=== PATIENT | female | born 1985 ===

== ENCOUNTER 2017-03-14 03:48 | Inpatient (IN) | payer OTHER ==
[2017-03-14] MEDS ORDERED: DEXTROSE 5%-LACTATED RINGERS 500 ML IV ONE (04:45)
[2017-03-14] MEDS ORDERED: AMPICILLIN SODIUM 2 GM VIAL ONE (04:49)
[2017-03-14 05:00] LABS: BASO % 0.8 % (0-2.0); EOS % 2.2 % (0-4.5); HEMATOCRIT 25.5 % (32.4-45.2); HEMOGLOBIN 7.9 GM/dL (10.7-15.3); LYMPH % 23.6 % (8-40); MCH 20.8 pg (25.7-33.7); MCHC 30.9 g/dl (32.0-36.0); MEAN CELL VOLUME 67.4 fl (80-96); MEAN PLT VOLUME 8.5 fl (7.5-11.1); MONO % 11.5 % (3.8-10.2); NEUT % 61.9 % (42.8-82.8); PLATELET COUNT 180 K/MM3 (134-434); RBC 3.78 M/mm3 (3.60-5.2); RDW 19.2 % (11.6-15.6); WHITE BLOOD COUNT 6.8 K/mm3 (4.0-10.0)
[2017-03-14] MEDS ORDERED: AMPICILLIN - 2 GM in SODIUM CHLORIDE 100 ML IVPB ONE (05:00)
[2017-03-14] MEDS ORDERED: BUTORPHANOL TARTRATE 1 MG/ML VIAL ONE ×4 (05:07→12:20)
[2017-03-14] MEDS ORDERED: PROMETHAZINE HCL 25 MG/1 ML VIAL ONE ×3 (05:08→12:20)
[2017-03-14 05:10] VITALS: BMI 25.4
[2017-03-14] MEDS ORDERED: DEXTROSE 5%-LACTATED RINGERS 1,000 ML IV SCH (05:15)
[2017-03-14] MEDS ORDERED: PROMETHAZINE HCL 25 MG/1 ML VIAL IVPUSH ONE ×3 (05:20→12:30)
[2017-03-14] MEDS ORDERED: BUTORPHANOL TARTRATE 1 MG/ML VIAL IVPUSH ONE ×3 (05:20→12:30)
[2017-03-14 05:45] LABS: URINE APPEARANCE CLOUDY; URINE BILIRUBIN NEGATIVE (NEGATIVE); URINE BLOOD 2+ (NEGATIVE); URINE COLOR YELLOW; URINE GLUCOSE (UA) 1+ (NEGATIVE); URINE KETONE NEGATIVE (NEGATIVE); URINE LEUK ESTERASE NEGATIVE (NEGATIVE); URINE NITRITE NEGATIVE (NEGATIVE); URINE UROBILINOGEN NEGATIVE mg/dL (0.2-1.0)
[2017-03-14 05:53] LABS: URINE PROTEIN 2+ (NEGATIVE)
[2017-03-14 05:54] LABS: EPI CELLS MODERATE /HPF (FEW); URINE BACTERIA RARE /hpf (NONE SEEN); URINE HYALINE CAST 3 /lpf; URINE MUCUS RARE; YEAST RARE
[2017-03-14 05:55] LABS: COCAINE, UR NEGATIVE ng/ml (CUTOFF=300); METHADONE, UR NEGATIVE ng/ml (CUTOFF=300); OPIATES, URI NEGATIVE ng/ml (CUTOFF=300); PHENCYCLIDINE,URINE NEGATIVE ng/ml (CUTOFF=25); URINE AMPHETAMINES NEGATIVE ng/ml (CUTOFF=500); URINE BARBITURATES NEGATIVE ng/ml (CUTOFF=200); URINE BENZODIAZEPINES NEGATIVE ng/ml (CUTOFF=200)
[2017-03-14 06:02] LABS: INR 0.93 (0.82-1.09); PROTHROMBIN TIME (PATIENT) 10.5 SEC (9.98-11.88)
[2017-03-14 06:05] LABS: ACTIVATED PTT 25.8 SECONDS (26.9-34.4)
[2017-03-14 06:14] LABS: ALBUMIN 2.2 g/dl (3.4-5.0); ALK PHOS 127 U/L (45-117); ANION GAP 13 (8-16); BILIRUBIN,TOTAL 0.2 mg/dL (0.2-1.0); BLOOD UREA NITROGEN 8 mg/dL (7-18); CALCIUM 8.5 mg/dL (8.5-10.1); CHLORIDE 107 mmol/L (98-107); CO2 22 mmol/L (21-32); CREATININE 0.5 mg/dL (0.55-1.02); GLUCOSE,RANDOM 90 mg/dL (74-106); POTASSIUM 3.8 mmol/L (3.5-5.1); SGOT/AST 14 U/L (15-37); SGPT/ALT 13 U/L (12-78); SODIUM 142 mmol/L (136-145); TOT PROT 6.4 g/dl (6.4-8.2)
[2017-03-14] MEDS ORDERED: OXYTOCIN 30 UNITS in 0.9% NS 30 UNIT/500 ML INFUS.BAG IVPB ONE (06:22)
--- NOTE | 2017-03-14 06:36 | HP ---
Past Medical History - Primary Care Physician PCP:: Arielle No - Admission Chief Complaint: 32 yrs , 39.2/7 weeks with SROM since 3.30 AM & onset LP since 3.30 AM . pt is drop in, PNC at [facility] , records requested History of Present Illness: pt does not know her wt gain as per pt she had ultrasound done q 2 weeks in last month. History Source: Significant Other Limitations to Obtaining History: Language Barrier (armenian speaking from [facility] - Past Medical History WELLNESS NURSE: No: Migraine, Seizure Cardiovascular: No: HTN, Murmur Pulmonary: No: Asthma Gastrointestinal: Yes: Hemorrhoids Hepatobiliary: Yes: Cholelithiasis, Cholecystitis ...: 5 ...Para: 3 ...Term: 3 (3 at [facility] 2008, 2009, 2011) ...: 0 ...Spon : 1 (20 weeks ) ...Induced : 0 ...Multiple Gestation: 0 ... Weeks Gestation by Dates: 39.2 ...EDC by Dates: 03/19/17 Heme/Onc: Yes: Anemia Infectious Disease: Yes: Other (not known) Psych: Yes: Other (not known) Rheumatology: Yes: Other (not known) ENT: Yes: Other (not known) Endocrine: Yes: Other (not known) - Past Surgical History Past Surgical History: Yes: Cholecystectomy (? gall stones removed or gall bladder removed pt is not clear about it , in 2010) Hx Myomectomy: No Hx Transabdominal Cerclage: No - Smoking History Smoking history: Never smoked - Alcohol/Substance Use Hx Alcohol Use: No History of Substance Use: reports: None Home Medications - Allergies Allergies/Adverse Reactions: Allergies Allergy/AdvReac Type Severity Reaction Status Date / Time No Known Allergies Allergy Verified 11/24/15 16:56 - Home Medications Home Medications: Ambulatory Orders Acetaminophen [Tylenol] 650 mg PO Q4H PRN #20 tablet 11/25/15 Mag Hydrox/Al Hydrox/Simeth [Mylanta Suspension -] 30 ml PO Q6H PRN #1 bottle Ranitidine HCl [Zantac] 150 mg PO BID PRN #20 tablet 11/25/15 Physical Exam - Maternity Vital Signs: Vital Signs Temperature 97.9 F 03/14/17 06:00 Pulse Rate 94 H 03/14/17 06:00 Respiratory Rate 20 03/14/17 06:00 Blood Pressure 113/68 03/14/17 06:00 O2 Sat by Pulse Oximetry (%) Constitutional: Yes: Obese, Pallor, Other (pt is sedated after receiving stadol 2 mg + phenrgan 25 mg at 5.20 AM) Eyes: Yes: WNL, PERRL HENT: Yes: WNL Neck: Yes: WNL Cardiovascular: Yes: WNL Lungs: Clear to auscultation Breast(s): Yes: WNL. No: Mass - Abdominal Exam/OB Fundal Height: 40 Number of Fetuses: Single Presentation: Vertex Contractions: Yes Regularity: Irregular Intensity: Moderate (5-6-7 min) Monitor Mode: External Heart Rate (range): 130-140 Heart Rate Location: [facility] Category: I Accelerations: Uniform Decelerations: None - Vaginal Exam/OB Vaginal Bleediing: No Speculum Exam: No Dilatation (cm): 3 Effacement (%): 50 Amniotic Membrane Status: Ruptured Nitrazine Test: Positive Amniotic Fluid: Yes: Clear Presentation: Vertex/Position Station: -3 - Physical Exam Musculoskeletal: Yes: WNL Extremities: Yes: WNL. No: Calf Tenderness Edema: LLE: 1+, RLE: 1+ Integumentary: Yes: WNL Deep Tendon Reflex Grade: Normal +2 ...Motor Strength: WNL Psychiatric: Yes: WNL, Alert, Oriented - Labs Lab Results: CBC, BMP 03/14/17 04:44 03/14/17 04:44 Laboratory Tests 03/14/17 03/14/17 03/14/17 04:44 04:44 04:44 PT with INR 10.50 INR 0.93 PTT (Actin FS) 25.8 L AST 14 L ALT 13 Urine Protein Urine Glucose (UA) Urine Ketones Urine Blood Urine WBC (Auto) Urine RBC (Auto) Ur Epithelial Cells Urine Bacteria Hyaline Casts Opiates Screen Methadone Screen Barbiturate Screen Phencyclidine Screen Ur Amphetamines Screen MDMA (Ecstasy) Screen Benzodiazepines Screen Cocaine Screen U Marijuana (THC) Screen HIV 1&2 Antibody Screen Negative HIV P24 Antigen Negative 03/14/17 03/14/17 05:15 05:15 PT with INR INR PTT (Actin FS) AST ALT Urine Protein 2+ H Urine Glucose (UA) 1+ H Urine Ketones Negative Urine Blood 2+ H Urine WBC (Auto) 15 Urine RBC (Auto) 49 Ur Epithelial Cells Moderate Urine Bacteria Rare Hyaline Casts 3 Opiates Screen Negative Methadone Screen Negative Barbiturate Screen Negative Phencyclidine Screen Negative Ur Amphetamines Screen Negative MDMA (Ecstasy) Screen Negative Benzodiazepines Screen Negative Cocaine Screen Negative U Marijuana (THC) Screen Negative HIV 1&2 Antibody Screen HIV P24 Antigen Laboratory Tests 03/14/17 03/14/17 04:44 04:44 Blood Type A POSITIVE Antibody Screen Negative Problem List - Problems (1) with 39 completed weeks gestation Code(s): Z3A.39 - 39 WEEKS GESTATION OF (2) SROM (spontaneous rupture of membranes) Code(s): BLT0501 - (3) Anemia affecting fifth Code(s): O99.019 - ANEMIA COMPLICATING , UNSPECIFIED TRIMESTER; O09.40 - SUPERVISION OF W GRAND MULTIPARITY, UNSP TRIMESTER (4) with care elsewhere, antepartum Code(s): Z34.90 - ENCNTR FOR SUPRVSN OF NORMAL , UNSP, UNSP TRIMESTER Assessment/Plan 32 yrs , 39.2/7 weeks, iup with SROM & onset LP, care ? in [facility] , chart not available . GBS unknown, rx IV Ampicillin prophylaxis is started . Severe Anemia pt was having UC 2-4 min at the time of admission at 4.00AM , she received stadol 2 mg + phenrgan 25 mg iv at 5.20 AM post sedation UC are irrregular .RX IV Pitocin Augmentation is begun at 6.45 AM Trial of vaginal delivery
[2017-03-14] MEDS ORDERED: OXYTOCIN 15 UNITS/ LR 250 ML 250 ML IVPB SCH (06:45)
[2017-03-14] MEDS ORDERED: OXYTOCIN 30 UNITS in 0.9% NS 30 UNIT/500 ML INFUS.BAG IVPB SCH (07:00)
[2017-03-14] MEDS: AMPICILLIN - 1 GM in SODIUM CHLORIDE 100 ML IVPB SCH ×2 (09:31→13:00)
--- NOTE | 2017-03-14 10:10 | PN ---
Progress Note, Labor Vaginal Exam #1 Labor Exam Date: 03/14/17 Labor Exam Time: 09:55 Heart Rate (range): 140 Dilatation: 4-5 Effacement (%): 80 Amniotic Membrane Status: Ruptured Presentation: Vertex/Position Station: -2 (-2/-1) Remarks: fhr cat-1, sometimes cat-2 , variable decel . uc q 2-3 min . she requests for pain meds rx Iv stadol 1 mg + phenrgan 25 mg iv stat Selected Entries 03/14/17 03/14/17 03/14/17 07:56 09:00 10:05 Temperature 98.1 F Pulse Rate 90 83 Blood Pressure 121/78 125/71 Weight 171 lb Vaginal Exam #2 Labor Exam Date: 03/14/17 Labor Exam Time: 11:00 Heart Rate (range): 135 Dilatation: 5-6 Effacement (%): 90 Amniotic Membrane Status: Ruptured Presentation: Vertex/Position Station: -1 Remarks: fhr cat-2 uc 2-3 min Vaginal Exam #3 Labor Exam Date: 03/14/17 Labor Exam Time: 12:15 Heart Rate (range): 140 Dilatation: 7 Effacement (%): 100 Amniotic Membrane Status: Ruptured Station: -1 Remarks: fhr cat-2 uc-2-3 min pt requests for pain meds rx iv stadol 1mg + phenergan 25 mg iv stat Selected Entries 03/14/17 03/14/17 10:00 11:00 Temperature 98.2 F Pulse Rate 90 89 Blood Pressure 129/80 112/63 Blood Pressure 96 79 Mean Vaginal Exam #4 Labor Exam Date: 03/14/17 Labor Exam Time: 14:05 Heart Rate (range): 140 Dilatation: 10 Effacement (%): 100 Amniotic Membrane Status: Ruptured Presentation: Vertex/Position Station: 0 (0/+1) Remarks: fhr cat-2 uc 2- min expulsive efforts not adequate. wait for passive descent before encouraging her to push Selected Entries 03/14/17 14:00 Temperature 98.6 F Pulse Rate 77 Blood Pressure 122/72 pt was encouraged to push at 2.50 pm
[2017-03-14] MEDS ORDERED: OXYTOCIN 20 UNITS in 0.9% NS 20 UNIT/1,000 ML INFUS.BAG IV ONE ×2 (10:34→17:40)
[2017-03-14] MEDS: METHYLERGONOVINE MALEATE 0.2 MG/1 ML AMP IM PRN ×2 (15:35→16:40)
[2017-03-14] MEDS ORDERED: oxyCODONE HCL 5 MG TABLET PO PRN (15:53)
[2017-03-14] MEDS ORDERED: BISACODYL 10 MG SUPP.RECT RC PRN (15:53)
[2017-03-14] MEDS ORDERED: WITCH HAZEL 50% (TUCKS) 40 PAD/JAR PAD TP PRN (15:53)
[2017-03-14] MEDS ORDERED: BENZOCAINE 28 GM HEMORRHOIDAL OINTMENT TP PRN (15:53)
[2017-03-14] MEDS ORDERED: BENZOCAINE 20% 57 GM BOTTLE TP PRN (15:53)
[2017-03-14] MEDS ORDERED: OXYTOCIN 20 UNITS in 0.9% NS 20 UNIT/1,000 ML INFUS.BAG IV SCH (16:00)
--- NOTE | 2017-03-14 16:05 | PN ---
Delivery - Delivery Vaginal Delivery: No Problems, Spontaneous (cord around neckx1 clamped & cut before delivery of shoulder . prophylactically after delivery of fetus 20 units pitocin started & IM Methergine was given at 3.35 Pm . 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 PNC at [facility] GBS unknown . 3 doses Iv Ampicillin were given. Pitocin Augmentation wa started IV Stadol 2 mg + Phenrgan 25 mg Iv followed by 2 more doses of stadol 1 mg + Phenrgan 25 mg were given Severe anemia hgb/ hct 7.9/25.4 . intrapartum course uneventful .
[2017-03-14 16:39] LABS: ARTERIAL BLOOD GAS BASE EXCESS -5.8 meq/l (-2-2); ARTERIAL BLOOD GAS PCO2 54.6 mmHg (35-45)
[2017-03-14 16:40] LABS: ALLENS TEST POSITIVE
[2017-03-14 16:45] LABS: ARTERIAL BLD GAS O2 SATURATION 41.3 % (90-98.9); ARTERIAL BLOOD GAS PO2 22.2 mmHg (80-100); ARTERIAL BLOOD GAS pH 7.23 (7.35-7.45)
[2017-03-14 16:47] LABS: VENOUS PC02 47.4 mmHg (38-52); VENOUS PH 7.28 (7.32-7.42); VENOUS PO2 26.3 mmHg (28-48)
[2017-03-14] MEDS ORDERED: ACETAMINOPHEN 325 MG TABLET (FP) ONE (16:48)
[2017-03-14] MEDS ORDERED: IBUPROFEN 600 MG TABLET (FP) PO ONE (16:48)
[2017-03-14] MEDS: ACETAMINOPHEN 325 MG TABLET (FP) PO PRN ×2 (16:50→21:36)
[2017-03-14] MEDS: IBUPROFEN 600 MG TABLET (FP) PO PRN ×2 (16:50→21:37)
[2017-03-14] MEDS: FERROUS SO4 325 MG TABLET (FP) PO SCH (18:17)
[2017-03-15] MEDS: IBUPROFEN 600 MG TABLET (FP) PO PRN ×3 (05:38→20:06)
[2017-03-15] MEDS: ACETAMINOPHEN 325 MG TABLET (FP) PO PRN ×3 (05:38→20:06)
[2017-03-15 06:30] LABS: HBsAG SCREEN Negative (Negative); RUBELLA IgG ANTIBODY 4.12 index (Immune >0.99)
--- NOTE | 2017-03-15 07:30 | PN ---
Progress Note (short form) - Note Progress Note: ppd 1 doing well, no c/o voids ok CBC, BMP 03/14/17 04:44 03/14/17 04:44 Last Vital Signs Temp Pulse Resp BP Pulse Ox 98.0 F 97 H 18 105/61 98 03/15/17 05:39 03/15/17 05:39 03/15/17 05:39 03/15/17 05:39 03/14/17 16:45 abdomen soft, uterus firm lochia mild no excess vaginal bl;eeding impression anemia asymptomatic, no active vaginal bleeding plan ambulate, iron , vit cbc
[2017-03-15] MEDS: FERROUS SO4 325 MG TABLET (FP) PO SCH ×2 (07:47→17:10)
[2017-03-15 09:09] LABS: BASO % 0.4 % (0-2.0); EOS % 0.7 % (0-4.5); HEMATOCRIT 22.3 % (32.4-45.2); LYMPH % 18.5 % (8-40); MCH 20.4 pg (25.7-33.7); MEAN PLT VOLUME 8.4 fl (7.5-11.1); MONO % 10.1 % (3.8-10.2); NEUT % 70.3 % (42.8-82.8); PLATELET COUNT 145 K/MM3 (134-434); RBC 3.28 M/mm3 (3.60-5.2); RDW 19.2 % (11.6-15.6); WHITE BLOOD COUNT 11.9 K/mm3 (4.0-10.0)
[2017-03-15 09:18] LABS: ADD RBC MORPHOLOGY YES; HEMOGLOBIN 6.7 GM/dL (10.7-15.3)
[2017-03-15] MEDS: PRENATAL VITAMINS W/ FOLIC ACID TABLET (FP) PO SCH (09:37)
[2017-03-15 14:20] LABS: ANISOCYTOSIS 3+; PLATELET ESTIMATE DECREASED
--- NOTE | 2017-03-15 19:07 | PN ---
Progress Note (short form) - Note Progress Note: nurse notified me in AM that her pp cbc , hgb /hct is 6.7 /22.3. she spoke to the patient with her as interpretor . she declined c/o dizziness or blackouts, she states she is fine . nurse also noticed she has been oob without problems. bleeding is minimal .nurse explained r/b/a of transfusion versus expectant management patient & her declined pack cell transfusion, states , he will take her to the specialist after discharge I spoke with patient in the evening , she was breast feeding .she states she is asymptomatic Selected Entries 03/15/17 03/15/17 08:28 13:00 Temperature 98.2 F 98.2 F Pulse Rate 89 96 H Blood Pressure 118/74 128/70 Laboratory Tests 03/15/17 07:45 WBC 11.9 H D RBC 3.28 L Hgb 6.7 L* D Hct 22.3 L Plt Count 145 Neutrophils % 70.3 Lymphocytes % 18.5 D Platelet Estimate Decreased ass : severe anemia, hemodynamically stable. . Plan ct po iron & pnv Problem List - Problems (1) with 39 completed weeks gestation Code(s): Z3A.39 - 39 WEEKS GESTATION OF (2) SROM (spontaneous rupture of membranes) Code(s): LLL4146 - (3) Anemia affecting fifth Code(s): O99.019 - ANEMIA COMPLICATING , UNSPECIFIED TRIMESTER; O09.40 - SUPERVISION OF W GRAND MULTIPARITY, UNSP TRIMESTER (4) with care elsewhere, antepartum Code(s): Z34.90 - ENCNTR FOR SUPRVSN OF NORMAL , UNSP, UNSP TRIMESTER
[2017-03-15] MEDS ORDERED: SENNOSIDES/DOCUSATE COMBO (SENNA PLUS) TABLET (UD) PO PRN (22:00)
[2017-03-16] MEDS: ACETAMINOPHEN 325 MG TABLET (FP) PO PRN ×2 (05:25→10:11)
[2017-03-16] MEDS: IBUPROFEN 600 MG TABLET (FP) PO PRN ×2 (05:25→10:12)
--- NOTE | 2017-03-16 08:08 | DS ---
Physical Exam-COMPRESSED YEAST SUPERVISOR Vital Signs: Vital Signs Temperature 98.0 F 03/15/17 21:54 Pulse Rate 93 H 03/15/17 21:54 Respiratory Rate 18 03/15/17 21:54 Blood Pressure 102/64 03/15/17 21:54 O2 Sat by Pulse Oximetry (%) 98 03/14/17 16:45 Constitutional: Yes: Pallor, Other (no c/o dizziness) Eyes: Yes: WNL HENT: Yes: WNL, Normocephalic Neck: Yes: WNL Cardiovascular: Yes: WNL Respiratory: Yes: WNL, CTA Bilaterally Gastrointestinal: Yes: WNL, Normal Bowel Sounds Renal/: Yes: WNL ....Post : Yes: Uterus firm, Uterus non-tender, Moderate lochia rubra ( perineum intact) Breast(s): Yes: WNL, Other (BF, bot engorged) Musculoskeletal: Yes: WNL Extremities: Yes: WNL. No: Calf Tenderness Edema: Yes Edema: LLE: 1+, RLE: 1+ Integumentary: Yes: WNL Neurological: Yes: WNL, Alert, Oriented ...Motor Strength: WNL Psychiatric: Yes: WNL, Alert, Oriented Labs: CBC, BMP 03/15/17 07:45 03/14/17 04:44 Delivery - Delivery Vaginal Delivery: No Problems, Spontaneous (cord around neckx1 clamped & cut before delivery of shoulder . prophylactically after delivery of fetus 20 units pitocin started & IM Methergine was given at 3.35 Pm . 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 PNC at [facility] GBS unknown . 3 doses Iv Ampicillin were given. Pitocin Augmentation wa started IV Stadol 2 mg + Phenrgan 25 mg Iv followed by 2 more doses of stadol 1 mg + Phenrgan 25 mg were given Severe anemia hgb/ hct 7.9/25.4 . intrapartum course uneventful . pt is severely anemic I had dicussion with her & her translating r/b/a of transfusion explained, they refused blood transfusion, will continue expectant management with po iron & pnv , high iron diet . discharge today Discharge Summary Reason For Visit: LABOR ADMIT Current Active Problems Anemia affecting fifth (Acute) with 39 completed weeks gestation (Acute) with care elsewhere, antepartum (Acute) SROM (spontaneous rupture of membranes) (Acute) Condition: Stable - Instructions Diet, Activity, Other Instructions: Post Instructions DIET: Continue good diet high in protein, calcium, and iron rich foods. Drink at least eight (8) glasses of water daily in addition to other fluids. Regular diet MEDICATIONS: Continue vitamins and iron as previously directed. Motrin and Tylenol may be taken for minor discomfort. ACTIVITY: Mild to moderate exercise may be started in two (2) weeks. Take frequent rest periods. Resume normal activity after six (6) week check up. WOUND CARE OF OPERATIVE SITE: Continue use of perineal bottle until vaginal discharge stops. Keep area clean. Shower daily. Keep abdominal wound dry. Report any drainage or redness to physician. Tub baths, tampons and douches are not permitted for [address] Breast feeding & or Bottle feeding BREAST CARE: (For those that are not breast feeding): If engorgement occurs: Wear tight fitting bra. Take Tylenol or Motrin for pain. Apply cold packs (ice in bags to each breast ) FAMILY PLANNING: There are many control alternatives to pursue and they should be discussed at your first office visit. You may resume sexual activity after your six (6) week check up. (Remember, breast feeding is not a contraceptive) NEXT PHYSICIAN APPOINTMENT: Be certain to call for a six (6) week appointment, unless otherwise directed. Go to your clinic , call for appt Call Clinic or got to Emergency Dept if you have any of the following: Heavy vaginal bleeding Painful urination Leg pain Unusual odor noted to vaginal bleeding High fever Red streaking noted on breast Referrals: Arielle No MD [Staff Physician] - Disposition: HOME - Home Medications Comprehensive Discharge Medication List: Ambulatory Orders Vitamins (Sjr) - 1 tab PO DAILY 03/14/17 Acetaminophen [Tylenol .Regular Strength -] 650 mg PO Q3H PRN tablet 03/15/17 Docusate Sodium [Colace] 100 mg PO BID PRN #60 capsule 03/15/17 Ferrous Sulfate [Feosol] 325 mg PO BIDWM #60 tab 03/15/17 Ibuprofen [Motrin -] 200 mg PO Q4H PRN tablet 03/15/17 Vitamins (Sjr) - 1 tab PO DAILY #30 tablet 03/15/17
[2017-03-16] MEDS: PRENATAL VITAMINS W/ FOLIC ACID TABLET (FP) PO SCH (10:11)
[2017-03-16] MEDS: FERROUS SO4 325 MG TABLET (FP) PO SCH (10:11)
[2017-03-16 10:39] VITALS: BP 112/64; PULSE 83; TEMP 98.5
== END 2017-03-16 13:10 | disposition home or self-care (01) | DRG 560 ==
LOC: JLDR 03:48 → J3W 17:39
PROVIDERS: ADMIT Obstetrics & Gynecology; ATTEND Obstetrics & Gynecology
PROC: 10E0XZZ Delivery of Products of Conception, External Approach (ICD-10-PCS; principal; 2017-03-14)
DX: O99.02 Anemia complicating childbirth (principal); Z3A.39 39 weeks gestation of pregnancy; Z37.0 Single live birth
CPT/HCPCS: 36415; 36600; 59409; 80053; 80307; 81003; 81015; 82803; 85025; 85610; 85730; 86593; 86762; 86850; 86900; 86901; 87340; 87389